=== PATIENT | male | born 1945 | race Caucasian/White ===

== ENCOUNTER 2021-05-01 11:39 | Emergency (ER) | payer MEDICARE ==
[~2021-05-01] VITALS: Ht 167.6 cm; Wt 59.0 kg
[2021-05-01] MEDS ORDERED: GLIPIZIDE 10 MG10 MG PO (11:47)
[2021-05-01] MEDS ORDERED: JANUMET 50-1,01 EACH PO (11:47)
[2021-05-01] MEDS ORDERED: FLOMAX0.4 MG PO (11:47)
[2021-05-01] MEDS ORDERED: PROSCAR 5MG TABL5 MG PO (11:47)
[2021-05-01 12:15] VITALS: BP 116/57
== END 2021-05-01 12:15 | disposition home or self-care (01) ==
LOC: M.ERS 11:39
DX: S00.451A Superficial foreign body of right ear, initial encounter (principal); Z79.899 Other long term (current) drug therapy; X58.XXXA Exposure to other specified factors, initial encounter; Y93.89 Activity, other specified; Y92.89 Other specified places as the place of occurrence of the external cause; Y99.9 Unspecified external cause status